=== PATIENT | female | born 1955 | race Two or more races ===

== ENCOUNTER 2023-06-11 05:41 | Inpatient (IN) | payer OTHER, MEDICAID ==
[~2023-06-11] VITALS: Ht 157.5 cm; Wt 54.8 kg
[2023-06-11] MEDS ORDERED: KETOROLAC TROMETH 60MG/2ML VIAL IM ONE (07:00)
[2023-06-11] MEDS ORDERED: HYDROcodone-ACET 5/325MG TAB PO ONE (07:00)
[2023-06-11] MEDS ORDERED: SODIUM CHLORIDE 0.9% 1,000 ML IV ONE (07:15)
[2023-06-11 07:35] LABS: Basophils # (auto) 0 10 ^3/uL (0-0.2); Basophils % (auto) 0.2 % (0.0-2.0); Eosinophils # (auto) 0 10 ^3/uL (0-0.8); Hematocrit 37.6 % (36.0-46.0); Hemoglobin 12.9 g/dL (12.2-16.2); Lymphocytes # (auto) 0.4 10 ^3/uL (0.4-5.4); Mean Corpuscular Hemoglobin 31.3 pg (28.0-32.0); Mean Corpuscular Hgb Conc. 34.3 g/dL (32.0-36.0); Mean Corpuscular Volume 91.4 fL (80.0-100.0); Monocytes # (auto) 0.7 10 ^3/uL (0-1.3); Monocytes % (auto) 7.4 % (0.0-12.0); Neutrophils # (auto) 8.5 10 ^3/uL (1.6-8.6); Neutrophils % (auto) 88.4 % (37.0-80.0); Red Blood Cells 4.12 10^6/uL (4.0-5.20); Red Cell Distribution Width 13.3 % (11.8-14.3); White Blood Cell 9.7 10^3/uL (4.4-10.8)
[2023-06-11 07:49] LABS: INR 1.05 (0.9-1.15)
[2023-06-11 07:51] LABS: Alanine Aminotransferase 33 U/L (7-40); Albumin 4.3 g/dL (3.2-4.8); Alkaline Phosphatase 98 U/L (46-116); Aspartate Aminotransferase 47 U/L (13-40); BUN/Creatinine Ratio 28.6 (10.0-20.0); Bilirubin, Total 1.4 mg/dL (0.2-1.0); Blood Urea Nitrogen 10 mg/dL (9-23); Calcium 9.2 mg/dL (8.7-10.4); Chloride 102 mmol/L (98-107); Glucose 159 mg/dL (74-106); Lipase 27 U/L (12-53); Potassium 3.2 mmol/L (3.5-5.1); Sodium 138 mmol/L (136-145)
[2023-06-11 07:52] LABS: Total Protein 6.9 g/dL (5.7-8.2)
[2023-06-11] MEDS ORDERED: MORPHINE SULFATE INJ 2 MG/ml SYRG IV PRN (12:45)
[2023-06-11] MEDS ORDERED: NITROGLYCERIN 0.4 MG SL TAB SL PRN (12:45)
[2023-06-11] MEDS ORDERED: ACETAMINOPHEN 325 MG TAB PO PRN (12:45)
[2023-06-11 13:36] VITALS: PULSE 77; RESP 18; O2SAT 96
[2023-06-11] MEDS ORDERED: POTASSIUM CHLORIDE 60 MEQ, LIDOCAINE 1% (LOCAL ANESTH.) 6 ML in SODIUM CHL 0.9% 500 ML IV ONE (14:15)
[2023-06-11 14:49] LABS: Urine Amorphous Crystal FEW /hpf (None Seen); Urine Bacteria FEW /hpf (None Seen); Urine Blood Negative /uL (Negative); Urine Clarity Clear (Clear); Urine Color Yellow (Yellow); Urine Mucus FEW (None Seen); Urine Protein, UAD TRACE (Negative); Urine Specific Gravity 1.015 (1.001-1.035); Urine Urobilinogen Normal (Negative); Urine WBC 2 /hpf (0 - 5)
[2023-06-11 15:04] LABS: Amphetamine Screen, Urine Neg (NEGATIVE); Barbiturate Scree,Urine Neg (NEGATIVE); Benzodiazephine Screen, Urine Neg (NEGATIVE); Cocaine Screen, Urine Neg (NEGATIVE); Opiate Scree,Urine Neg (NEGATIVE); Phencyclidine Screen, Urine Neg (NEGATIVE)
[2023-06-11 15:05] LABS: Cannabinoid Screen, Urine Pos (NEGATIVE)
[2023-06-11] MEDS: MORPHINE SULFATE INJ 2 MG/ml SYRG IV PRN (17:02)
[2023-06-11] MEDS: ONDANSETRON HCL 4 MG/2 ML VIAL IV PRN (17:02)
[2023-06-11 22:59] VITALS: BP 147/53; PULSE 72; RESP 18; TEMP 98.6; O2SAT 100
[2023-06-11] MEDS ORDERED: DULO1CAP5 PO (23:28)
[2023-06-11] MEDS ORDERED: PROG200C21 PO (23:28)
[2023-06-12] VITALS (8 sets, daily range): BP systolic 124–165; BP diastolic 55–77; PULSE 68–97; RESP 16–18; TEMP 98.2–98.7; O2SAT 94–96
[2023-06-12] MEDS: ONDANSETRON HCL 4 MG/2 ML VIAL IV PRN ×3 (00:02→21:25)
[2023-06-12] MEDS: MORPHINE SULFATE INJ 2 MG/ml SYRG IV PRN ×5 (00:02→21:56)
[2023-06-12 07:07] LABS: Alanine Aminotransferase 21 U/L (7-40); Alkaline Phosphatase 66 U/L (46-116); BUN/Creatinine Ratio 22.2 (10.0-20.0); Blood Urea Nitrogen 10 mg/dL (9-23); Calcium 8.4 mg/dL (8.5-10.1); Chloride 105 mmol/L (98-107); Glucose 122 mg/dL (74-106); Potassium 3.6 mmol/L (3.5-5.1); Sodium 137 mmol/L (136-145)
[2023-06-12 07:08] LABS: Albumin 3.3 g/dL (3.2-4.8); Aspartate Aminotransferase 26 U/L (13-40); Bilirubin, Total 1.4 mg/dL (0.2-1.0); Total Protein 5.7 g/dL (5.7-8.2)
[2023-06-12 07:09] LABS: Anion Gap 7 (5-15); Carbon Dioxide 25 mmol/L (20-30)
[2023-06-12 07:18] LABS: Basophils # (auto) 0 10 ^3/uL (0-0.2); Basophils % (auto) 0.5 % (0.0-2.0); Eosinophils # (auto) 0 10 ^3/uL (0-0.8); Eosinophils % (auto) 0.3 % (0.0-7.0); Hematocrit 38.4 % (36.0-46.0); Hemoglobin 12.8 g/dL (12.2-16.2); Lymphocytes # (auto) 0.8 10 ^3/uL (0.4-5.4); Lymphocytes % (auto) 10.4 % (10.0-50.0); Mean Corpuscular Hemoglobin 31.1 pg (28.0-32.0); Mean Corpuscular Hgb Conc. 33.3 g/dL (32.0-36.0); Mean Corpuscular Volume 93.3 fL (80.0-100.0); Monocytes # (auto) 0.5 10 ^3/uL (0-1.3); Monocytes % (auto) 6.7 % (0.0-12.0); Neutrophils % (auto) 82.1 % (37.0-80.0); Red Blood Cells 4.12 10^6/uL (4.0-5.20); Red Cell Distribution Width 13.6 % (11.8-14.3); White Blood Cell 7.3 10^3/uL (4.4-10.8)
[2023-06-12] MEDS: ENOXAPARIN SOD 40 MG/0.4 ML SYRINGE SC SCH (10:00)
[2023-06-12] MEDS: D5W/SOD CHLO 0.9% 1,000 ML IV SCH (11:15)
[2023-06-13] VITALS (11 sets, daily range): BP systolic 123–133; BP diastolic 39–82; PULSE 64–98; RESP 16–97; TEMP 97.4–98; O2SAT 93–97
[2023-06-13] MEDS: ONDANSETRON HCL 4 MG/2 ML VIAL IV PRN ×2 (00:37→04:34)
[2023-06-13] MEDS: D5W/SOD CHLO 0.9% 1,000 ML IV SCH ×5 (00:38→21:28)
[2023-06-13] MEDS: MORPHINE SULFATE INJ 2 MG/ml SYRG IV PRN (04:40)
[2023-06-13] MEDS ORDERED: TRANEXAMIC ACID 20 ML ONE (06:46)
[2023-06-13] MEDS ORDERED: BUPIVACAINE 0.25% INJ 50ML VIAL ONE ×2 (06:46→06:50)
[2023-06-13] MEDS ORDERED: VANCOMYCIN HCL 1000 MG VL ONE (06:47)
[2023-06-13] MEDS ORDERED: MORPHINE SULF PF 5 MG/10 ML VIAL ONE (06:50)
[2023-06-13] MEDS ORDERED: DexAMETHasone SOD PHOS 4 MG/1ML SDV INJ ONE (06:50)
[2023-06-13] MEDS ORDERED: EPINEPHrine HCL 1 MG/1 ML AMP ONE (06:50)
[2023-06-13] MEDS ORDERED: KETOROLAC TROMETH 30 MG/ML 1ML VIAL ONE ×2 (06:50→06:59)
[2023-06-13] MEDS ORDERED: GLYCOPYRROLATE 0.2 MG/ML 1ML VIAL ONE (06:59)
[2023-06-13] MEDS ORDERED: PROPOFOL 10 MG/ML 20 ML IV ONE (06:59)
[2023-06-13] MEDS ORDERED: LIDOCAINE 1% (LOCAL ANESTH.) PF 5ml SDV ONE (06:59)
[2023-06-13] MEDS ORDERED: DexAMETHasone SOD PHOS 10MG/1ML VIAL INJ ONE (06:59)
[2023-06-13] MEDS ORDERED: ONDANSETRON HCL 4 MG/2 ML VIAL ONE (06:59)
[2023-06-13] MEDS ORDERED: fentaNYL CITRATE 100 MCG/2 ML VL ONE (07:15)
[2023-06-13] MEDS ORDERED: ceFAZolin 1GM/50ML 100 ML IV ONE (07:43)
[2023-06-13] MEDS ORDERED: ePHEDrine SULFATE 50 MG/ML AMP ONE (08:15)
[2023-06-13] MEDS ORDERED: LACTATED RINGER'S 1,000 ML IV SCH (09:15)
[2023-06-13] MEDS ORDERED: fentaNYL CITRATE 100 MCG/2 ML VL IV PRN (09:30)
[2023-06-13] MEDS ORDERED: ePHEDrine SULFATE 50 MG/ML AMP IV PRN (09:30)
[2023-06-13] MEDS ORDERED: NALOXONE HCL 0.4 MG/ML VIAL IV PRN (09:30)
[2023-06-13] MEDS ORDERED: ONDANSETRON HCL 4 MG/2 ML VIAL IV PRN (09:30)
[2023-06-13] MEDS ORDERED: HYDROmorphone HCL 2 MG/ML VL/or syr IV PRN (09:30)
[2023-06-13] MEDS ORDERED: FLUMAZENIL 0.1 MG/ML INJ 10ML MDV IV PRN (09:30)
[2023-06-13] MEDS ORDERED: hydrALAZINE HCL 20 MG/ML VL IV PRN (09:30)
[2023-06-13] MEDS ORDERED: LABETALOL HCL 5 MG/ML 4ML SYRINGE IV PRN (09:30)
[2023-06-13] MEDS: ENOXAPARIN SOD 40 MG/0.4 ML SYRINGE SC SCH (09:59)
[2023-06-13] MEDS ORDERED: HYDR-4902 PO ×3 (13:07→18:23)
[2023-06-13] MEDS ORDERED: APIX2.5T PO ×3 (13:07→18:23)
[2023-06-13] MEDS: ceFAZolin 1GM/50ML 50 ML IV SCH ×2 (14:59→20:11)
[2023-06-13] MEDS: HYDROcodone-ACET 5/325MG TAB PO PRN (23:54)
[2023-06-14] MEDS: ceFAZolin 1GM/50ML 50 ML IV SCH (01:35)
[2023-06-14 05:00] VITALS: BP 149/61; PULSE 69; RESP 18; TEMP 97.8; O2SAT 92
[2023-06-14 06:43] LABS: Basophils # (auto) 0 10 ^3/uL (0-0.2); Basophils % (auto) 0.1 % (0.0-2.0); Eosinophils # (auto) 0 10 ^3/uL (0-0.8); Hematocrit 32.6 % (36.0-46.0); Hemoglobin 10.9 g/dL (12.2-16.2); Lymphocytes # (auto) 0.6 10 ^3/uL (0.4-5.4); Lymphocytes % (auto) 7.5 % (10.0-50.0); Mean Corpuscular Hemoglobin 31.2 pg (28.0-32.0); Mean Corpuscular Hgb Conc. 33.5 g/dL (32.0-36.0); Mean Corpuscular Volume 93.4 fL (80.0-100.0); Monocytes # (auto) 0.5 10 ^3/uL (0-1.3); Monocytes % (auto) 6.4 % (0.0-12.0); Neutrophils # (auto) 6.7 10 ^3/uL (1.6-8.6); Red Cell Distribution Width 13.4 % (11.8-14.3); White Blood Cell 7.8 10^3/uL (4.4-10.8)
[2023-06-14 07:03] LABS: Chloride 106 mmol/L (98-107); Potassium 3.6 mmol/L (3.5-5.1); Sodium 137 mmol/L (136-145)
[2023-06-14 07:10] LABS: Glucose 150 mg/dL (74-106)
[2023-06-14 07:24] LABS: Anion Gap 6 (5-15); BUN/Creatinine Ratio 23.7 (10.0-20.0); Blood Urea Nitrogen 9 mg/dL (9-23); Carbon Dioxide 25 mmol/L (20-30)
[2023-06-14 08:10] VITALS: PULSE 88; O2SAT 95
[2023-06-14 09:06] LABS: Hematocrit 36.6 % (36.0-46.0); Hemoglobin 12.1 g/dL (12.2-16.2)
[2023-06-14 09:43] VITALS: BP 130/55; PULSE 69; RESP 19; TEMP 98; O2SAT 94
[2023-06-14] MEDS: ENOXAPARIN SOD 40 MG/0.4 ML SYRINGE SC SCH (09:44)
[2023-06-14] MEDS: HYDROcodone-ACET 5/325MG TAB PO PRN ×2 (09:45→16:31)
[2023-06-14 15:14] VITALS: BP 139/64; PULSE 79; RESP 20; TEMP 97.9; O2SAT 95
[2023-06-14 16:53] VITALS: BP 140/65; PULSE 89; RESP 20; TEMP 98.2; O2SAT 95
== END 2023-06-14 19:30 | disposition home or self-care (01) | DRG 521 ==
LOC: EDBD 05:41 → ER 05:41 → TELE 12:46 → TELE-EAST 23:03
PROVIDERS: ADMIT Internal Medicine; ATTEND Internal Medicine
PROC: 0SRS0JZ Replacement of Left Hip Joint, Femoral Surface with Synthetic Substitute, Open Approach (ICD-10-PCS; principal; 2023-06-13 07:47)
DX: S72.002A Fracture of unspecified part of neck of left femur, initial encounter for closed fracture (principal); I21.A1 Myocardial infarction type 2; E87.6 Hypokalemia; F10.20 Alcohol dependence, uncomplicated; F41.9 Anxiety disorder, unspecified; F32.A Depression, unspecified; G89.29 Other chronic pain; R77.8 Other specified abnormalities of plasma proteins; W18.39XA Other fall on same level, initial encounter; Y93.89 Activity, other specified; Y92.098 Other place in other non-institutional residence as the place of occurrence of the external cause; Y99.8 Other external cause status
CPT/HCPCS: 36415; 71045; 73501; 73502; 80048; 80053; 80307; 81001; 83690; 84484; 85014; 85018; 85025; 85610; 86850; 86900; 86901; 93005; 93306; 96361; 96372; 96374; 96375; 97110; 97163; 97530; G0378; J0171; J0690; J1100; J1885; J2001; J2405; J2704; J3490; J7042

== ENCOUNTER 2023-10-20 08:52 | Inpatient (IN) | payer BC, MEDICAID ==
[~2023-10-20] VITALS: Ht 157.5 cm; Wt 41.3 kg
[~2023-10-20 08:52] MED LIST: DULO1CAP5 PO; PROG200C21 PO
[2023-10-20] MEDS ORDERED: ceFAZolin 2 GM/D5W100ml 100 ML IV ONE (09:03)
[2023-10-20] MEDS ORDERED: KETAMINE 50mg/ML 1ml syringe ONE (09:49)
[2023-10-20] MEDS ORDERED: fentaNYL CITRATE 100 MCG/2 ML VL ONE (09:49)
[2023-10-20] MEDS ORDERED: DexAMETHasone SOD PHOS 10MG/1ML VIAL INJ ONE (09:50)
[2023-10-20] MEDS ORDERED: MEPERIDINE HCL (25 MG/ML) 1ML VIAL ONE (09:50)
[2023-10-20] MEDS ORDERED: SODIUM CHLORIDE LOCK 50 ML ONE (09:50)
[2023-10-20] MEDS ORDERED: fentaNYL CITRATE 5 ML ONE (09:50)
[2023-10-20] MEDS ORDERED: PROPOFOL 10 MG/ML 20 ML IV ONE (09:50)
[2023-10-20] MEDS ORDERED: ONDANSETRON HCL 4 MG/2 ML VIAL ONE (09:50)
[2023-10-20] MEDS ORDERED: NEOSTIGMINE 1 MG/ML INJ (10mg/10ML VIAL) ONE (09:50)
[2023-10-20] MEDS ORDERED: ROCURONIUM 10MG/ML 10ML VIAL IV ONE (09:50)
[2023-10-20] MEDS ORDERED: MIDAZOLAM HCL 2MG/2ML 2ml VIAL (1mg/ml) ONE (09:50)
[2023-10-20] MEDS ORDERED: GLYCOPYRROLATE 0.2 MG/ML 1ML VIAL ONE (09:50)
[2023-10-20] MEDS ORDERED: HYDROmorphone HCL 2 MG/ML VL/or syr IV PRN ×2 (11:15)
[2023-10-20] MEDS ORDERED: METOCLOPRAMIDE HCL 5MG/ml INJ 2ml VIAL IV PRN (11:15)
[2023-10-20] MEDS ORDERED: MORPHINE SULFATE INJ 2 MG/ml SYRG IV PRN ×2 (11:15→15:45)
[2023-10-20] MEDS ORDERED: METHYLENE BLUE 0.5% 5MG/ML 10ml AMP IV ONE (11:28)
[2023-10-20] MEDS ORDERED: CONJ ESTROGENS 0.625MG/GM VAG CRM 30GM PV ONE (11:28)
[2023-10-20] MEDS ORDERED: LIDOCAINE W/ EPINEPHRINE 1% 20ML VIAL ONE (14:42)
[2023-10-20 15:03] VITALS: O2SAT 94
[2023-10-20] MEDS ORDERED: ACETAMINOPHEN 325 MG TAB PO PRN (15:45)
[2023-10-20] MEDS: SODIUM CHLORIDE 0.9% 1,000 ML IV SCH (15:45)
[2023-10-20] MEDS ORDERED: HYDROcodone-ACET 5/325MG TAB PO PRN (15:45)
[2023-10-20] MEDS ORDERED: ONDANSETRON HCL 4 MG/2 ML VIAL IV PRN (15:45)
[2023-10-20 17:15] VITALS: PULSE 60
[2023-10-20 17:20] VITALS: PULSE 60; RESP 16
[2023-10-20 17:35] VITALS: BP 158/63; PULSE 58; RESP 18; TEMP 97.8; O2SAT 94
[2023-10-20 20:00] VITALS: PULSE 85; RESP 18; TEMP 36.6
[2023-10-20 22:00] VITALS: BP 135/94; PULSE 68; RESP 18; TEMP 98.1; O2SAT 96
[2023-10-21 05:00] VITALS: BP 152/56; PULSE 81; RESP 18; TEMP 98.4; O2SAT 95
[2023-10-21 08:00] VITALS: BP 152/56; PULSE 73; PULSE 81; RESP 18; TEMP 98.4
[2023-10-21] MEDS: SODIUM CHLORIDE 0.9% 1,000 ML IV SCH (08:25)
[2023-10-21 09:00] VITALS: BP 155/67; PULSE 78; RESP 18; O2SAT 94
[2023-10-21] MEDS ORDERED: ENOXAPARIN SOD 40 MG/0.4 ML SYRINGE SC SCH (10:00)
== END 2023-10-21 15:40 | disposition home or self-care (01) | DRG 743 ==
LOC: SUR 08:52 → TELE 15:36 → TELE-WESTW 17:13
PROVIDERS: ADMIT Internal Medicine; ATTEND Obstetrics & Gynecology
PROC: 0UT24ZZ Resection of Bilateral Ovaries, Percutaneous Endoscopic Approach (ICD-10-PCS; 2023-10-20)
PROC: 0UT74ZZ Resection of Bilateral Fallopian Tubes, Percutaneous Endoscopic Approach (ICD-10-PCS; 2023-10-20)
PROC: 0USG4ZZ Reposition Vagina, Percutaneous Endoscopic Approach (ICD-10-PCS; 2023-10-20)
PROC: 0JQC3ZZ Repair Pelvic Region Subcutaneous Tissue and Fascia, Percutaneous Approach (ICD-10-PCS; 2023-10-20)
PROC: 0TSD4ZZ Reposition Urethra, Percutaneous Endoscopic Approach (ICD-10-PCS; 2023-10-20)
PROC: 0UT94ZZ Resection of Uterus, Percutaneous Endoscopic Approach (ICD-10-PCS; principal; 2023-10-20 11:58)
DX: N81.2 Incomplete uterovaginal prolapse (principal); N39.3 Stress incontinence (female) (male); Z79.899 Other long term (current) drug therapy
CPT/HCPCS: 86850; 86900; 86901; 97163; C1771; G0378; J1100; J2250; J2405; J2704